=== PATIENT | female | born 1995 | race Caucasian/White ===

== ENCOUNTER 2018-09-06 04:50 | Inpatient (IN) | payer OTHER ==
[~2018-09-06] VITALS: Ht 165.1 cm; Wt 65.4 kg
[2018-09-06] VITALS (7 sets, daily range): BP systolic 107–135; BP diastolic 55–80; PULSE 57–75; RESP 18–20; Ht 165.1 cm; Wt 65.4 kg
[2018-09-06] MEDS ORDERED: LACTATED RINGER'S 1,000 ML IV PRN (05:40)
[2018-09-06] MEDS ORDERED: LACTATED RINGER'S 1,000 ML IV SCH (05:40)
[2018-09-06] MEDS ORDERED: AMPICILLIN 2 GM/NS (PMX) 100 ML ONE (05:55)
[2018-09-06] MEDS ORDERED: MISOPROSTOL 200 MCG TAB PR PRN ×2 (06:00→08:30)
[2018-09-06] MEDS ORDERED: METHYLERGONOVINE 0.2 MG INJ IM PRN ×2 (06:00→08:30)
[2018-09-06] MEDS ORDERED: BUTORPHANOL 2 MG INJ IV PRN (06:00)
[2018-09-06] MEDS ORDERED: IBUPROFEN 600 MG TAB PO PRN (06:00)
[2018-09-06] MEDS ORDERED: OXYTOCIN 30 UNITS/LR 500 ML IV PRN ×2 (06:00→08:30)
[2018-09-06] MEDS ORDERED: OXYTOCIN 30 UNITS/LR 500 ML IV SCH ×2 (06:00)
[2018-09-06] MEDS ORDERED: AMPICILLIN 2 GM/NS (PMX) 100 ML IV ONE (06:00)
[2018-09-06] MEDS ORDERED: LIDOCAINE 1% (MPF) 30 ML INJ INJ PRN (06:00)
[2018-09-06] MEDS ORDERED: CARBOPROST 250 MCG INJ IM PRN ×2 (06:00→08:30)
[2018-09-06] MEDS ORDERED: MINERAL OIL LIGHT 10 ML VIAL TOP STA (06:22)
[2018-09-06] MEDS ORDERED: MINERAL OIL LIGHT 10 ML VIAL TOP ONE (06:30)
--- NOTE | 2018-09-06 07:41 | LDN ---
Date/Time of Note Date/Time of Note DATE: 09/06/18 TIME: 07:24 Delivery Summary of normal male Weeks of Gestation 38w Placenta Delivered: Spontaneously Meconium: none Episiotomy: No Perineal laceration: 2 Laceration repair: multiple vaginal laceration which extended to bilateral labia majora 000ch gut 00 ch gut Anesthesia type: Local Estimated blood loss: 200 Sponge & Needle done & correct: Yes All needle counts correct: Yes Any foreign bodies felt in the: No Delivery Information Sex Infant Sex: male Apgars 1 Minute: 9 5 Minute: 9 Suctioning Nose & mouth suctioned at to: Yes Delee suction performed: Yes Umbilical Cord Umbilical cord with: 3 Vessels Cord presentations: nuchal cord Nuchal cord present X: 1 Cord Blood was obtained: Yes Mother & Baby Disposition Disposition Mom & Baby to Maternity; Good: Yes Mom transferred to: Other Baby to NICU: No () NEDRA MALLORY MD Sep 06, 2018 07:37
--- NOTE | 2018-09-06 07:56 | HP ---
Date/Time of Note Date/Time of Note DATE: 09/06/18 TIME: 07:42 OB - History Hx of Present Free Text/Dictation 23y.o at 38weeks with c/o uterine contractions and leaking fluid since09/05/2199 Initial VE 5-6/90%/-1 UC q2-4min no record is avilable including GBS status admitted for expectant management. Chief Complaint: leaking fluid with uc's Estimated Due Date: Sep 20, 2018 : 1 Para: 0 Spontaneous : 0 Therapeutic : 0 Care: Other Ultrasounds: Other Obstetrical Complications: None Medical Complications: None Past Family/Social History * Past Medical, Surgical, Family and Obstetric Histories reviewed from chart. Blood Type: Unknown Rubella: unknown RPR/VDRL: Unknown GBS Status: Unknown HBsAG: Unknown OB Admission Exam Vital Signs Vital Signs Vital Signs Date Temp Pulse Resp B/P (MAP) Pulse Ox O2 O2 Flow FiO2 Time Delivery Rate 09/06/18 98.1 57 20 135/68 Room Air 05:48 (90) Physical Exam HEENT: WNL Heart: Rhythm Normal Lungs: Clear, Equal Abdomen: WNL Extremities: Normal Reflexes: Normal Cervical Dilatation: 5cm Effacement: Other (90%) Station: -1 Membranes: Ruptured Amniotic Fluid: Clear Heart Rate: 130's Accelerations: Accelerations Present Decelerations: No Decelerations Varibility: Moderate Contractions on Admission: < 5 Minutes Apart Intensity: Moderate Last 72 hours Lab Results CBC & BMP 09/06/18 05:25 OB Assessment/Plan Reason for admission: active labor, rupture of membranes Other Assessment: IUP 38w Plan: Expectant Management Other plan: ampicillin 2gNEDRA Mcdaniel MD Sep 06, 2018 07:52
--- NOTE | 2018-09-06 08:00 | TRIAGE ---
OB Triage Datetime Report Generated by CPN: 09/06/2018 08:00 Datetime: 09/06/2018 07:31 Stage of : Recovery Pain Assessment Pain Scale: 4 Pain Presence: Constant Pain Type: Ache Pain Location: Perineum Pain Goal: 0 Datetime: 09/06/2018 07:16 Stage of : Recovery Pain Assessment Pain Scale: 4 Pain Presence: Constant Pain Type: Ache Pain Location: Perineum Pain Goal: 0 Datetime: 09/06/2018 07:04 Stage of : Recovery Temperature Route: Oral Pain Assessment Pain Scale: 4 Pain Presence: Constant Pain Type: Ache Pain Location: Perineum Pain Goal: 0 Datetime: 09/06/2018 06:20 Labor Evaluation Frequency: 1.5-3 Monitor Mode: External Duration (sec)2399: 60-100 Pattern: Normal: <= 5 Contractions in 10 Minutes Monitor Mode: External US Comments: indeterminate FHR baseline Datetime: 09/06/2018 06:11 Labor Evaluation Frequency: 3-5 Monitor Mode: External Duration (sec)2399: 60-90 Quality: Strong Pattern: Normal: <= 5 Contractions in 10 Minutes Resting Tone [place]: Relaxed Heart Rate FHR Baseline Rate: 135 Monitor Mode: External US Variability: Moderate 6-25 bpm Accelerations: 15X15 Vaginal Exam Dilatation (cms): 10.0 Effacement (%): 100 Station: 1 Datetime: 09/06/2018 06:00 Labor Evaluation Frequency: 2-3 Monitor Mode: External Duration (sec)2399: 80-120 Pattern: Normal: <= 5 Contractions in 10 Minutes Heart Rate FHR Baseline Rate: 135 Monitor Mode: External US Variability: Moderate 6-25 bpm Accelerations: 15X15 Decelerations: Variable Category: Category II Datetime: 09/06/2018 05:56 Vaginal Exam Dilatation (cms): 10.0 Effacement (%): 100 Datetime: 09/06/2018 05:37 Vaginal Exam Dilatation (cms): 10.0 Effacement (%): 100 Station: -1 Datetime: 09/06/2018 05:22 Assessment Type: Admission Assessment Vaginal Bleeding: None Maternal Assessment Level of Consciousness: Fully Conscious DTR's/Clonus: DTRs 2+; No Clonus Headache: Denies Blurred Vision: No Respiratory Effort: Unlabored; Regular Rhythm; Equal Expansion Breath Sounds, Left: Clear and Equal Breath Sounds, Right: Clear and Equal Nausea/Vomiting: Denies RUQ Epigastric Pain: Denies Lower Extremities Edema: None Degree: None Upper Extremities Edema: None Degree: None Facial Edema: None Fall Risk Assessment History of Falling: (0) No Secondary Diagnosis: (0) No Ambulatory Aid: (0) Bedrest/Nurse Assist IV Therapy: (0) No Gait: (0) Normal/Bedrest/Immobile Mental Status: (0) Oriented to Own Ability Fall Score: 0 Fall Risk Score Definition: No Risk: No action required Pain Assessment Pain Scale: 10 Pain Presence: Intermittent Pain Type: Contraction Pain Location: Abdomen; Perineum Pain Goal: 2 Datetime: 09/06/2018 05:19 Time of Arrival: 09/06/2018 04:40 EGA: 38.0 Arrived By: Wheelchair Arrived From: Home Chief Complaint: UCs q5mins since 0230 Movement: Present Contractions: Regular Time Contractions Began: 09/06/2018 02:30 Contractions: q5mins Rupture of Membranes: Unsure Vaginal Bleeding: None Vaginal Discharge: Present Abdominal Trauma: Not Applicable Patient Complaints: Contractions; Cramping; Back Pain Time Provider Notified: 09/06/2018 05:05 Provider Notified: Initial Plan: NST, Nitrazine, VE Datetime: 09/06/2018 05:15 Labor Evaluation Frequency: 1-3 Monitor Mode: External Duration (sec)2399: 50-100 Quality: Strong Pattern: Normal: <= 5 Contractions in 10 Minutes Resting Tone [place]: Relaxed Heart Rate FHR Baseline Rate: 135 Monitor Mode: External US Variability: Moderate 6-25 bpm Accelerations: 10X10 Decelerations: Variable Category: Category II Membranes Ruptured Date/Time: 09/05/2018 22:00 Membranes Rupture Method: Spontaneous Amniotic Fluid Color: Clear Amniotic Fluid Amount: Moderate Amniotic Fluid Odor: Normal Presentation 'A': Cephalic Datetime: 09/06/2018 05:07 Membrane Status: Intact Datetime: 09/06/2018 05:06 Vaginal Exam Dilatation (cms): 5.5 Datetime: 09/06/2018 05:05 Stage of : OB Triage Vaginal Exam Dilatation (cms): 5.5 Effacement (%): 90 Station: -1 Exam By: HONEY Giron Membrane Status: Intact Datetime: 09/06/2018 04:51 Stage of : OB Triage Temperature Route: Oral Pain Assessment Pain Scale: 8 Pain Presence: Intermittent Pain Type: Cramping; Contraction; Pressure Pain Location: Abdomen; Back; Perineum Pain Relief Measures: Comfort Measures Pain Assessment Comments: Pt breathing heavily thru uc's
[2018-09-06] MEDS ORDERED: ZOLPIDEM 5 MG TAB PO PRN (08:30)
[2018-09-06] MEDS ORDERED: WITCH HAZEL/GLYCERIN PAD PR PRN (08:30)
[2018-09-06] MEDS ORDERED: BENZOCAINE 20% 56 ML SPRAY TOP PRN (08:30)
[2018-09-06] MEDS ORDERED: OXYCODONE/ASPIRIN (4.88/325) TAB PO PRN ×2 (08:30)
[2018-09-06] MEDS: SENNA/DOCUSATE NA (8.6MG/50MG) TAB PO SCH ×2 (09:27→21:11)
[2018-09-06] MEDS ORDERED: AMPICILLIN 1 GM/NS (PMX) 50 ML IV SCH (10:00)
[2018-09-06] MEDS: IBUPROFEN 600 MG TAB PO SCH ×3 (11:50→23:38)
[2018-09-06] MEDS: LANOLIN HPA 1 PKT TOP PRN (11:50)
[2018-09-07 04:00] VITALS: BP 113/71; PULSE 72; RESP 18
[2018-09-07] MEDS: IBUPROFEN 600 MG TAB PO SCH ×3 (05:30→17:52)
[2018-09-07 07:30] VITALS: BP 110/63; PULSE 72; RESP 18
[2018-09-07] MEDS: SENNA/DOCUSATE NA (8.6MG/50MG) TAB PO SCH ×2 (10:19→21:28)
[2018-09-07] MEDS: LANOLIN HPA 1 PKT TOP PRN (10:19)
[2018-09-07 16:00] VITALS: BP 115/63; PULSE 68; RESP 20
--- NOTE | 2018-09-07 17:08 | PN ---
Date/Time of Note Date/Time of Note DATE: 09/07/18 TIME: 17:06 OB Subjective Subjective Subjective PPD# 1 Patient is doing well. She denies nausea, vomiting, shortness of breath, chest pain, headache. She has been ambulating without difficulty, tolerating regular diet. Pain is well controlled on current medications OB Objective Objective Objective VS - Last 72 Hours, by Label Date Temp Pulse Resp B/P (MAP) Pulse Ox O2 O2 Flow FiO2 Time Delivery Rate 09/07/18 98.2 68 20 115/63 Room Air 16:00 (80) 09/07/18 98.2 72 18 110/63 Room Air 07:30 (79) 09/07/18 98.7 72 18 113/71 Room Air 04:00 (85) 09/06/18 98.9 59 18 110/55 Room Air 23:50 (73) 09/06/18 98.8 69 18 107/58 Room Air 19:15 (74) 09/06/18 98.1 75 20 111/66 Room Air 16:00 (81) 09/06/18 98.0 68 20 134/80 12:00 (98) 09/06/18 98.0 75 19 128/76 Room Air 09:30 (93) 09/06/18 98.2 70 18 124/80 Room Air 09:03 (95) 09/06/18 98.1 57 20 135/68 Room Air 05:48 (90) General: AAO X 3, comfortable, NAD, appropriate mood and affect. ABD: +BS. Soft, non-tender. Uterus 2 cm below umbilicus Flank: No CVA tenderness (B/L) LE: Mild edema. No clubbing, cyanosis, thigh or calf tenderness (B/L). Homans 'sign is negative Laboratory Tests Test 09/06/18 05:25 09/07/18 06:49 09/07/18 07:43 White Blood Count 11.8 10^3/ul 13.5 10^3/ul Red Blood Count 4.45 10^6/ul 3.81 10^6/ul Hemoglobin 13.6 g/dl 11.6 g/dl Hematocrit 39.3 % 34.7 % Mean Corpuscular Volume 88.3 fl 91.1 fl Mean Corpuscular 30.6 pg 30.4 pg Hemoglobin Mean Corpuscular 34.6 g/dl 33.4 g/dl Hemoglobin Concent Red Cell Distribution 12.7 % 13.2 % Width Platelet Count 218 10^3/UL 169 10^3/UL Mean Platelet Volume 11.6 fl 11.2 fl Immature Granulocytes % 0.800 % 0.600 % Neutrophils % 75.0 % 69.9 % Lymphocytes % 17.7 % 21.7 % Monocytes % 5.9 % 6.6 % Eosinophils % 0.3 % 0.7 % Basophils % 0.3 % 0.5 % Nucleated Red Blood Cells 0.0 /100WBC 0.0 /100WBC % Immature Granulocytes # 0.090 10^3/ul 0.080 10^3/ul Neutrophils # 8.9 10^3/ul 9.4 10^3/ul Lymphocytes # 2.1 10^3/ul 2.9 10^3/ul Monocytes # 0.7 10^3/ul 0.9 10^3/ul Eosinophils # 0.0 10^3/ul 0.1 10^3/ul Basophils # 0.0 10^3/ul 0.1 10^3/ul Nucleated Red Blood Cells 0.0 10^3/ul 0.0 10^3/ul # Prothrombin Time 11.9 Sec Prothrombin Time Ratio 0.9 INR International 0.87 Normalized Ratio Activated 26.6 Sec Partial Thromboplast Time Rapid Plasma Reagin NONREACTIVE Hepatitis B Surface NEGATIVE Antigen Lab Scanned Report REFERENCE LAB [id number] OB Assessment/Plan Other plan: 23-year-old 1 para 1001 s/p normal vaginal delivery at 38 weeks. PPD#1 - AF, VSS - Contraception methods with R/B/A/FR discussed - Continue care - Discharge home tomorrow - Rx and instruction given - Follow up in 2 and 6 weeks at clinic LOVELY GORDILLO Sep 07, 2018 17:08
--- NOTE | 2018-09-07 17:09 | DS ---
Date/Time of Note Date/Time of Note DATE: 09/07/18 TIME: 17:08 Obstetrical Discharge Record Final Diagnosis Final Diagnosis: Term delivered Other Final Diagnosis 23-year-old 1 para 1001 s/p normal vaginal delivery at 38 weeks. PPD#1. She is ambulating and tolerating regular diet. She is voiding without difficulty. Pain is controlled on current medication. - AF, VSS - Contraception methods with R/B/A/FR discussed - Continue care - Discharge home tomorrow - Rx and instruction given - Follow up in 2 and 6 weeks at clinic Condition on Discharge Physical Assessment Last Vitals: Vital Signs Date Temp Pulse Resp B/P (MAP) Pulse Ox O2 O2 Flow FiO2 Time Delivery Rate 09/07/18 98.2 68 20 115/63 Room Air 16:00 (80) Voiding: Yes Bowel Movement: Yes Breast: Soft, non-tender Fundus: Firm Calf Tenderness: No Patient Condition: Stable LOVELY GORDILLO Sep 07, 2018 17:09
[2018-09-07 19:20] VITALS: BP 113/66; PULSE 75; RESP 18
--- NOTE | 2018-09-07 20:01 | DS ---
Date/Time of Note Date/Time of Note DATE: 09/07/18 TIME: 20:01 Obstetrical Discharge Record Final Diagnosis Final Diagnosis: Term delivered Vaginal Delivery Obstetrical Delivery: Spontaneous Complications Augmentation: Yes Induction: No Rupture of Membranes: No Condition on Discharge Physical Assessment Voiding: Yes Bowel Movement: Yes Breast: Soft, non-tender, Filling Fundus: Firm Abdomen and Incision: soft, not tender Calf Tenderness: No Patient Condition: Good YEFRI LANDIN MD Sep 07, 2018 20:01
[2018-09-08] MEDS: IBUPROFEN 600 MG TAB PO SCH ×3 (00:07→12:03)
[2018-09-08 04:00] VITALS: BP 96/54; PULSE 70; RESP 18
[2018-09-08 07:45] VITALS: BP 112/71; PULSE 62; RESP 16
[2018-09-08] MEDS: SENNA/DOCUSATE NA (8.6MG/50MG) TAB PO SCH (08:30)
[2018-09-08] MEDS ORDERED: DIPHTH/TET/ACEL PERTUSS (ADULT) 0.5 ML VIAL IM* ONE (09:00)
== END 2018-09-08 12:55 | disposition home or self-care (01) | DRG 807 ==
LOC: OBT 04:50 → L-D 04:50 → OBT 05:05 → L-D 05:45 → PP1 08:22
PROVIDERS: ADMIT Specialist; ATTEND Specialist
PROC: 10E0XZZ Delivery of Products of Conception, External Approach (ICD-10-PCS; principal; 2018-09-06)
PROC: 0HQ9XZZ Repair Perineum Skin, External Approach (ICD-10-PCS; 2018-09-06)
DX: O69.81X0 Labor and delivery complicated by cord around neck, without compression, not applicable or unspecified (principal); Z37.0 Single live birth; O70.0 First degree perineal laceration during delivery; Z3A.38 38 weeks gestation of pregnancy
CPT/HCPCS: 85025; 85610; 85730; 86592; 86850; 86900; 86901; 87340; 99464; G0463; J0290; J2590; J7120